=== PATIENT | male | born 1985 | race Caucasian/White ===

== ENCOUNTER 2018-11-21 16:18 | Emergency (ER) | payer MEDICAID ==
[~2018-11-21] VITALS: Ht 182.9 cm; Wt 79.5 kg
[~2018-11-21 16:18] MED LIST: CEPH-419 PO; HYDR1TAB PO; METH10TA4 PO
[2018-11-21 16:43] VITALS: BP 122/89
[2018-11-21] MEDS ORDERED: mupirocin 2% ointment 22GM TP STA (16:58)
== END 2018-11-21 17:20 | disposition home or self-care (01) ==
LOC: ER 16:19
DX: S90.822A Blister (nonthermal), left foot, initial encounter (principal); S90.821A Blister (nonthermal), right foot, initial encounter; F12.90 Cannabis use, unspecified, uncomplicated; F10.99 Alcohol use, unspecified with unspecified alcohol-induced disorder; Z60.2 Problems related to living alone; Z56.0 Unemployment, unspecified; Z88.0 Allergy status to penicillin; Z79.899 Other long term (current) drug therapy; X58.XXXA Exposure to other specified factors, initial encounter; Y93.89 Activity, other specified; Y92.89 Other specified places as the place of occurrence of the external cause; Y99.8 Other external cause status; Y90.9 Presence of alcohol in blood, level not specified
CPT/HCPCS: 99283

== ENCOUNTER 2018-11-25 23:36 | Emergency (ER) | payer MEDICAID ==
[~2018-11-25] VITALS: Ht 182.9 cm; Wt 77.3 kg
[2018-11-26] MEDS ORDERED: cephalexin 250mg capsule PO ONE (01:10)
[2018-11-26] MEDS ORDERED: sulfamethoxazole/trimethoprim DS (800/160mg) tablet PO ONE (01:10)
[2018-11-26] MEDS ORDERED: CEPH500C5 PO (01:25)
[2018-11-26] MEDS ORDERED: BACDS PO (01:25)
[2018-11-26 01:38] VITALS: BP 128/67
== END 2018-11-26 01:40 | disposition home or self-care (01) ==
LOC: ER 23:36
DX: L03.116 Cellulitis of left lower limb (principal); F17.210 Nicotine dependence, cigarettes, uncomplicated; F12.90 Cannabis use, unspecified, uncomplicated; Z56.0 Unemployment, unspecified; Z79.2 Long term (current) use of antibiotics; Z79.899 Other long term (current) drug therapy; Z88.0 Allergy status to penicillin
CPT/HCPCS: 99283

== ENCOUNTER 2018-12-02 20:44 | Emergency (ER) | payer MEDICAID ==
[~2018-12-02] VITALS: Ht 182.9 cm; Wt 75.0 kg
[~2018-12-02 20:44] MED LIST changes: +BACDS PO; +CEPH500C5 PO; +LIDOcaine 1% W/epiNEPHrine 1:100,000 20ml vial ONE
--- NOTE | 2018-12-02 21:26 | NUR ---
called [employer] to contact someone to move ankle monitor from left ankle to rt ankle, pt has abscess to posterior left leg, +cmst to left foot, able to palpate strong, regular pedal pulse, cap refill is less than 3 seconds, ankle monitor is snug on leg.
--- NOTE | 2018-12-02 21:33 | NUR ---
staff member from [employer] is coming to move ankle monitor to other leg
--- NOTE | 2018-12-02 21:46 | NUR ---
PAMELA FOWLER AT BEDSIDE TO SWITCH ANKLE MONITOR TO RT ANKLE
--- NOTE | 2018-12-02 22:48 | NUR ---
set up at bedside to I&D of abscess
[2018-12-02] MEDS ORDERED: SULF1TAB49 PO (23:29)
[2018-12-02 23:57] VITALS: BP 122/78
== END 2018-12-02 23:58 | disposition home or self-care (01) ==
LOC: ER 20:44
DX: L02.416 Cutaneous abscess of left lower limb (principal); F12.90 Cannabis use, unspecified, uncomplicated; Z88.0 Allergy status to penicillin; Z79.899 Other long term (current) drug therapy; Z56.0 Unemployment, unspecified; Z60.2 Problems related to living alone
CPT/HCPCS: 10060; 99283

== ENCOUNTER 2018-12-05 22:26 | Emergency (ER) | payer MEDICAID ==
[~2018-12-05] VITALS: Ht 185.4 cm; Wt 61.0 kg
[~2018-12-05 22:26] MED LIST changes: -LIDOcaine 1% W/epiNEPHrine 1:100,000 20ml vial ONE; +SULF1TAB49 PO
[2018-12-06] MEDS ORDERED: sulfamethoxazole/trimethoprim DS (800/160mg) tablet PO ONE (01:00)
[2018-12-06] MEDS ORDERED: HYDROcodone/acetaminophen 5mg/325mg tablet PO ONE (01:05)
[2018-12-06] MEDS ORDERED: naproxen 500mg tablet PO ONE (01:05)
--- NOTE | 2018-12-06 01:27 | NUR ---
simple dressing applied to left caqlf wound as ordered . site with minimal serioussangious drainage. with a pin casey in place sterile 2x2 applied and held in palce with koban wrap . pt tolereated well
--- NOTE | 2018-12-06 01:33 | NUR ---
pt asking for note for work . notified dr terry
[2018-12-06 01:43] VITALS: BP 123/73
== END 2018-12-06 01:47 | disposition home or self-care (01) ==
LOC: ER 22:26
DX: L03.116 Cellulitis of left lower limb (principal); F17.200 Nicotine dependence, unspecified, uncomplicated; F12.90 Cannabis use, unspecified, uncomplicated; Z56.0 Unemployment, unspecified; Z88.0 Allergy status to penicillin; Z79.899 Other long term (current) drug therapy
CPT/HCPCS: 99283